=== PATIENT | male | born 1965 | race African-American/Black ===

== ENCOUNTER 2017-06-24 09:54 | Emergency (ER) | payer OTHER ==
[2017-06-24] MEDS ORDERED: KETOROLAC 60 MG/2 ML VIAL IM STA (10:43)
--- NOTE | 2017-06-24 10:45 | ED ---
General Adult HPI - General Chief complaint: Urogenital Stated complaint: testicle pain/swollen Time Seen by Provider: 06/24/17 10:35 Source: patient, RN notes reviewed Mode of arrival: ambulatory Limitations: no limitations - History of Present Illness Initial comments: Patient 51-year-old male who presents emergency room today with a chief complaint of right testicle pain and swelling over the last day and a half. Patient does admit to recent unprotected sex. He states he is worried about possible STD. He does admit that he had one we is 19 years old. Patient admits also to a fall that occurred yesterday when he slipped on on his blood. He states is unsure if this is related. He states it is tender to palpation. He does have increased urgency of urination. He denies any other complaints or symptoms. Patient denies any recent fever, chills, shortness of breath, chest pain, back pain, abdominal pain, nausea or vomiting, numbness or tingling, dysuria or hematuria, constipation or diarrhea, headaches or visual changes, or any other complaints. - Related Data Home Medications Medication Instructions Recorded Confirmed Ascorbic Acid [Vitamin C] 500 mg PO DAILY 06/24/17 06/24/17 Cholecalciferol [Vitamin D3] 1,000 unit PO DAILY 06/24/17 06/24/17 Multivitamins, Thera [Multivitamin 1 tab PO DAILY 06/24/17 06/24/17 (formulary)] Vitamin B Complex 1 cap PO DAILY 06/24/17 06/24/17 Previous Rx's Medication Instructions Recorded Ciprofloxacin HCl [Cipro] 500 mg PO Q12HR #20 day 06/24/17 Hydrocodone/Acetaminophen [Willis 1 each PO Q6HR PRN #10 tab 06/24/17 5-325] Allergies Allergy/AdvReac Type Severity Reaction Status Date / Time sertraline HCl [From Zoloft] AdvReac "stroke-like Verified 06/24/17 10:20 symptoms" Review of Systems ROS Statement: Those systems with pertinent positive or pertinent negative responses have been documented in the HPI. ROS Other: All systems not noted in ROS Statement are negative. Past Medical History Past Medical History: No Reported History Additional Past Medical History / Comment(s): headaches fx maxilla History of Any Multi-Drug Resistant Organisms: None Reported Past Surgical History: No Surgical Hx Reported Additional Past Surgical History / Comment(s): jaw eye Past Psychological History: No Psychological Hx Reported Smoking Status: Current every day smoker Past Alcohol Use History: None Reported Past Drug Use History: None Reported General Exam - General Exam Comments Initial Comments: General: The patient is awake and alert, in no distress, and does not appear acutely ill. Eye: Pupils are equal, round and reactive to light, extra-ocular movements are intact. No nystagmus. There is normal conjunctiva bilaterally. No signs of icterus. Ears, nose, mouth and throat: There are moist mucous membranes and no oral lesions. Neck: The neck is supple, there is no tenderness or JVD. Cardiovascular: There is a regular rate and rhythm. No murmur, rub or gallop is appreciated. Respiratory: Lungs are clear to auscultation, respirations are non-labored, breath sounds are equal. No wheezes, stridor, rales, or rhonchi. Gastrointestinal: Soft, non-distended, non-tender abdomen without masses or organomegaly noted. There is no rebound or guarding present. No CVA tenderness. Bowel sounds are unremarkable. Musculoskeletal: Normal ROM, no tenderness. Strength 5/5. Sensation intact. Pulses equal bilaterally 2+. Neurological: A&O x 3. CN II-XII intact, There are no obvious motor or sensory deficits. Coordination appears grossly intact. Speech is normal. Skin: Skin is warm and dry and no rashes or lesions are noted. Psychiatric: Cooperative, appropriate mood & affect, normal judgment. : Patient does have normal penile shaft no sign of lesions. No drainage or discharge. There is increased redness and inflammation to the right testicle tender on palpation. Increased swelling on palpation. Limitations: no limitations Course Vital Signs 06/24/17 10:03 Temperature 98.0 F Pulse Rate 80 Respiratory 17 Rate Blood Pressure 132/65 O2 Sat by Pulse 98 Oximetry Medical Decision Making - Medical Decision Making Patient reexamined at this time shows no signs of distress. Resting comfortably in the stretcher. Patient's labs been reviewed and is consistent with epididymitis on the ultrasound. Patient's urinalysis 72 white cells. Patient will also be started on Cipro cover for infection and prostate. Patient given Rocephin and azithromycin here in the emergency room. Advised no sexual contact all symptoms have resolved. - Lab Data Lab Results 06/24/17 Range/Units 12:03 Urine Color Yellow Urine Appearance Cloudy (Clear) Urine pH 6.5 (5.0-8.0) Ur Specific [place] 1.022 (1.001-1.035) Urine Protein Trace H (Negative) Urine Glucose (UA) Negative (Negative) Urine Ketones Negative (Negative) Urine Blood Negative (Negative) Urine Nitrite Negative (Negative) Urine Bilirubin Negative (Negative) Urine Urobilinogen 8.0 (<2.0) mg/dL Ur Leukocyte Esterase Large H (Negative) Urine RBC 1 (0-5) /hpf Urine WBC 72 H (0-5) /hpf Ur Squamous Epith Cells <1 (0-4) /hpf Amorphous Sediment Few H (None) /hpf Urine Bacteria Few H (None) /hpf Urine Mucus Rare H (None) /hpf Disposition Clinical Impression: Orchitis Disposition: HOME SELF-CARE Condition: Good Instructions: Sexually Transmitted Diseases (ED) Additional Instructions: Please use medication as discussed. Please follow-up with family doctor in the next 2 days of symptoms have not improved. Please return to emergency room if the symptoms increase or worsen or for any other concerns. Prescriptions: Ciprofloxacin HCl [Cipro] 500 mg PO Q12HR #20 day Hydrocodone/Acetaminophen [Willis 5-325] 1 each PO Q6HR PRN #10 tab PRN Reason: Pain Referrals: None,Stated [Primary Care Provider] - 1-2 days Mukul Bosch MD [REFERRING] - 1-2 days Hosea Frazier MD [STAFF PHYSICIAN] - 1-2 days Time of Disposition: 12:34
--- NOTE | 2017-06-24 11:53 | US ---
EXAMINATION TYPE: US scrotum with doppler. Grayscale and color Doppler Duplex imaging performed of omaira villalba scrotum. DATE OF EXAM: 06/24/2017 COMPARISON: NONE CLINICAL HISTORY: Pain. Pain and edema right testicle x 2 days. Patient had a fall 2 days ago and víctor ded on his butt EXAM MEASUREMENTS: TESTICLES: Right Testicle: 3.9 x 2.3 x 3.0 cm Left Testicle: 4.0 x 2.0 x 3.4 cm EPIDIDYMIS HEAD: Right Epididymis: 1.8 cm Left Epididymis: 1.1 cm Doppler performed to assess for testicular vascularity; good bilateral color flow and waveforms are s een. There is no evidence of testicular torsion. Presence of hydroceles: yes, medial to right testicle = 4.0cm and lateral to left testicle = 2.6cm Right epididymis appears heterogeneous with increased vascularity IMPRESSION: Correlate for epididymitis on the right.
[2017-06-24] MEDS ORDERED: cefTRIAXone 250 MG VIAL IM STA (12:11)
[2017-06-24] MEDS ORDERED: AZITHROMYCIN 500 MG TAB PO STA (12:11)
[2017-06-24 12:27] LABS: Amorphous Sediment,Urine Few /hpf; Appearance,Urine Cloudy (Clear); Bacteria,Urine Few /hpf; Bilirubin,Urine Negative (Negative); Glucose,Urine (UA) Negative (Negative); Ketones,Urine Negative (Negative); Leukocyte Esterase,Urine Large (Negative); Mucus,Urine Rare /hpf; Nitrite,Urine Negative (Negative); PH, Urine 6.5 (5.0-8.0); Particle Count 5901; Protein,Urine Trace (Negative); RBC,Urine 1 /hpf (0-5); Specific Gravity,Urine 1.022 (1.001-1.035); Squamous Epithelial Cell,Urine <1 /hpf (0-4); UA Billing (MACRO vs. MICRO) MICRO; WBC,Urine 72 /hpf (0-5)
[2017-06-24 13:01] VITALS: BP 128/63; PULSE 70; RESP 18; TEMP 98.5
== END 2017-06-24 13:01 | disposition home or self-care (01) ==
LOC: EC 09:54
DX: N45.2 Orchitis (principal); F17.200 Nicotine dependence, unspecified, uncomplicated; Z79.899 Other long term (current) drug therapy; Z88.8 Allergy status to other drugs, medicaments and biological substances
CPT/HCPCS: 81001; 87491; 87591; 87086; 93975; 76870; 99284; 96372 ×2; J0696; J1885

== ENCOUNTER 2024-07-12 14:35 | Emergency (ER) | payer OTHER ==
--- NOTE | 2024-07-12 15:13 | ED ---
Lower Extremity Injury HPI - General Chief Complaint: Extremity Injury, Lower Stated Complaint: L leg injury swelling/pain Time Seen by Provider: 07/12/24 15:12 Source: patient, RN notes reviewed Mode of arrival: ambulatory Limitations: no limitations - History of Present Illness Initial Comments: 58-year-old male presented to the ER with a chief complaint of left knee pain. Patient states about 2-1/2 3 weeks ago he was hit in his left knee with a baseball while attempting to make a play at home plate. He states the ball hit him on his lateral superior aspect of his left knee. He states since then he has been able to limp to ambulate and started using crutches today. He reports pain at night has not been increasing and noticed increase in swelling the past couple of days. Denies any paresthesias. Patient has been taking ibuprofen with minor relief. No other injuries or complaints. Patient is currently at [facility] for rehabilitation. - Related Data Home Medications Medication Instructions Recorded Confirmed Ascorbic Acid [Vitamin C] 500 mg PO DAILY 06/24/17 06/24/17 Cholecalciferol [Vitamin D3] 1,000 unit PO DAILY 06/24/17 06/24/17 Multivitamins, Thera [Multivitamin 1 tab PO DAILY 06/24/17 06/24/17 (formulary)] Vitamin B Complex 1 cap PO DAILY 06/24/17 06/24/17 Previous Rx's Medication Instructions Recorded Ciprofloxacin HCl [Cipro] 500 mg PO Q12HR #20 day 06/24/17 Hydrocodone/Acetaminophen [Morrison 1 each PO Q6HR PRN #10 tab 06/24/17 5-325] Ondansetron Odt [Zofran Odt] 4 mg PO Q8HR PRN #12 tab 02/28/18 Allergies Allergy/AdvReac Type Severity Reaction Status Date / Time sertraline HCl [From Zoloft] AdvReac "stroke-like Verified 07/12/24 15:04 symptoms" Review of Systems ROS Statement: Those systems with pertinent positive or pertinent negative responses have been documented in the HPI. ROS Other: All systems not noted in ROS Statement are negative. Past Medical History Past Medical History: No Reported History Additional Past Medical History / Comment(s): headaches fx maxilla History of Any Multi-Drug Resistant Organisms: None Reported Past Surgical History: No Surgical Hx Reported Additional Past Surgical History / Comment(s): jaw eye Past Psychological History: No Psychological Hx Reported Past Alcohol Use History: None Reported Past Drug Use History: None Reported General Exam Limitations: no limitations General appearance: alert, in no apparent distress Respiratory exam: Present: normal lung sounds bilaterally. Absent: respiratory distress, wheezes, rales, rhonchi, stridor Cardiovascular Exam: Present: regular rate, normal rhythm, normal heart sounds. Absent: systolic murmur, diastolic murmur, rubs, gallop, clicks Extremities exam: Present: tenderness (Left lateral knee. There is an effusion noted. Limited range of motion due to pain. 2+ left posterior tibialis and dorsalis pedis pulses. Strength 5+), other (No left calf tenderness or edema) Neurological exam: Present: alert, oriented X3, CN II-XII intact Skin exam: Present: warm, dry, intact, normal color. Absent: rash Course Vital Signs 07/12/24 07/12/24 15:01 16:40 Temperature 98 F 98.1 F Pulse Rate 75 71 Respiratory 20 18 Rate Blood Pressure 139/78 133/72 O2 Sat by Pulse 99 99 Oximetry Medical Decision Making - Medical Decision Making Was pt. sent in by a medical professional or institution (, PA, IRRIGATION TECHNICIAN, urgent care, hospital, or [facility]...) When possible be specific @ -Patient currently residing at [facility] for rehabilitation Did you speak to anyone other than the patient for history (EMS, parent, family, police, friend...)? What history was obtained from this source @ -No Did you review nursing and triage notes (agree or disagree)? Why? @ -I reviewed and agree with nursing and triage notes Were old charts reviewed (outside hosp., previous admission, EMS record, old EK G, old radiological studies, urgent care reports/EKG's, [facility] records)? Report findings @ -No old charts were reviewed Differential Diagnosis (chest pain, altered mental status, abdominal pain women, abdominal pain men, vaginal bleeding, weakness, fever, dyspnea, syncope, headache, dizziness, GI bleed, back pain, seizure, CVA, palpatations, mental health, musculoskeletal)? @ -Differential Musculoskeletal: Muscular strain, contusion, ligament sprain, fracture, arthritis, septic arthritis, bursitis, cellulitis, muscle spasm, nerve compression, DVT, arterial occlusion, herpes zoster, electrolyte abnormality, tumor.... This is not meant to be in all inclusive list EKG interpreted by me (3pts min.). @ -None X-rays interpreted by me (1pt min.). @ -Left knee x-ray interpreted by me negative for acute fractures or dislocations. CT interpreted by me (1pt min.). @ -None done U/S interpreted by me (1pt. min.). @ -None done What testing was considered but not performed or refused? (CT, X-rays, U/S, labs)? Why? @ -None What meds were considered but not given or refused? Why? @ -None Did you discuss the management of the patient with other professionals (professionals i.e. , PA, IRRIGATION TECHNICIAN, lab, RT, psych nurse, social services manager, venetian blind cleaner and repairer, teacher, aoc director combat plans officer, vocational case manager)? Give summary @ -No Was smoking cessation discussed for >3mins.? @ -No Was critical care preformed (if so, how long)? @ -No Were there social determinants of health that impacted care today? How? (Homelessness, low income, unemployed, alcoholism, drug addiction, transportation, low edu. Level, literacy, decrease access to med. care, intermediate, rehab)? @ -No Was there de-escalation of care discussed even if they declined (Discuss DNR or withdrawal of care, Hospice)? DNR status @ -No What co-morbidities impacted this encounter? (DM, HTN, Smoking, COPD, CAD, Cancer, CVA, ARF, Chemo, Hep., AIDS, mental health diagnosis, sleep apnea, morbid obesity)? @ -None Was patient admitted / discharged? Hospital course, mention meds given and route, prescriptions, significant lab abnormalities, going to OR and other pertinent info. @ -Discharge. 58 year old male presenting to the ER for evaluation of left knee injury. History and physical exam completed. Vitals within normal limits. Exam significant for edema and tenderness to left lateral knee. Limited active ROM due to pain and swelling. LLE NV intact. Patient received PO ibuprofen for pain control in the ER. Xrays obtained negative for acute fractures or dislocations. Results discussed with patient, all questions answered. Advise close follow-up with PCP. Strict return parameters discussed. Conservative treatment options discussed. Patient discharged stable condition with follow-up to PCP. Patient verbally expressed understanding and agreement with care plan. Case discussed with ED attending, Dr. Mo. Undiagnosed new problem with uncertain prognosis? @ -No Drug Therapy requiring intensive monitoring for toxicity (Heparin, Nitro, Ins ulin, Cardizem)? @ -No Were any procedures done? @ -No Diagnosis/symptom? @ -Knee effusion/contusion/knee injury Acute, or Chronic, or Acute on Chronic? @ -Acute Uncomplicated (without systemic symptoms) or Complicated (systemic symptoms)? @ -Uncomplicated Side effects of treatment? @ -No Exacerbation, Progression, or Severe Exacerbation? @ -No Poses a threat to life or bodily function? How? (Chest pain, [place], AL, pneumonia, PE, COPD, DKA, ARF, appy, cholecystitis, CVA, Diverticulitis, Homicidal, Suicidal, threat to staff... and all critical care pts) @ -No - Radiology Data Radiology results: report reviewed, image reviewed Disposition Clinical Impression: Knee effusion, Contusion, Knee injury Disposition: HOME SELF-CARE Condition: Stable Instructions (If sedation given, give patient instructions): Knee Pain (ED) Additional Instructions: You may take [id number] anti-inflammatories including ibuprofen for pain control. Follow-up with PCP. Return to the ER for any new or worsening concer ns. Is patient prescribed a controlled substance at d/c from ED?: No Referrals: Nonstaff,Physician [Primary Care Provider] - 1-2 days Time of Disposition: 16:12
[2024-07-12] MEDS: IBUPROFEN 600 MG TAB PO STA (15:44)
--- NOTE | 2024-07-12 16:03 | XR ---
EXAMINATION TYPE: XR knee complete LT DATE OF EXAM: 07/12/2024 COMPARISON: None HISTORY: 58-year-old male hit with baseball, lateral pain TECHNIQUE: 3 views FINDINGS: No knee joint effusion. Extensor mechanism is intact. Mild degenerative spurring patellofemoral petty rtment. No acute fracture, subluxation, dislocation. IMPRESSION: No acute osseous abnormality seen. Mild degenerative spurring patellofemoral compartment. If symptoms persist, consider MRI.
[2024-07-12 16:41] VITALS: BP 133/72; PULSE 71; RESP 18; TEMP 98.1
== END 2024-07-12 16:43 | disposition home or self-care (01) ==
LOC: EC 14:35
DX: R22.42 Localized swelling, mass and lump, left lower limb
CPT/HCPCS: 99283